=== PATIENT | female | born 1970 | race Caucasian/White ===

== ENCOUNTER 2019-04-15 06:19 | Day surgery (SDC) | payer BC ==
[2019-04-08 16:00] VITALS: BMI 41.1
[2019-04-15] MEDS ORDERED: MIDAZOLAM HCL 2 MG/2 ML SINGLE DOSE VIAL ONE ×2 (07:07→07:46)
[2019-04-15] MEDS ORDERED: DEXAMETHASONE SOD PHOSPHATE 4 MG/1 ML VIAL ONE (07:07)
[2019-04-15] MEDS ORDERED: PROPOFOL 20 ML ONE ×5 (07:07→08:53)
[2019-04-15] MEDS ORDERED: ROCURONIUM BROMIDE 50 MG/5 ML SYRINGE ONE (07:07)
[2019-04-15] MEDS ORDERED: fentaNYL CITRATE 250 MCG/5 ML VIAL ONE (07:07)
[2019-04-15] MEDS ORDERED: ONDANSETRON 4 MG/2 ML VIAL ONE (07:07)
[2019-04-15] MEDS ORDERED: SUCCINYLCHOLINE CHLORIDE 200 MG/10 ML SYRINGE ONE (07:07)
[2019-04-15] MEDS ORDERED: EPHEDRINE SULFATE/0.9% NACL/PF 50 MG/10 ML SYRINGE NR ONE (07:07)
[2019-04-15] MEDS ORDERED: BUPIVACAINE HCL 0.25% 125 MG/50 ML VIAL ONE (08:16)
[2019-04-15] MEDS ORDERED: GLYCOPYRROLATE 0.2 MG/1 ML VIAL ONE (08:31)
[2019-04-15] MEDS ORDERED: BUPIVACAINE HCL/PF 0.25% (2.5MG/ML) 10 ML VIAL IJ ONE ×2 (08:33)
[2019-04-15] MEDS ORDERED: ONDANSETRON 4 MG/2 ML VIAL IVPUSH PRN ×2 (09:31→09:40)
[2019-04-15] MEDS ORDERED: oxyCODONE HCL 5 MG TABLET PO PRN ×2 (09:31→09:40)
--- NOTE | 2019-04-15 09:38 | OP ---
Operative Note - Note: Operative Date: 04/15/19 Pre-Operative Diagnosis: Right abdominal pain. Malfunctioning subcutaneous gastric band port Operation: Removal plus replacement of malfunctioning gastric band port. Excision of fibrous capsule around subcutaneous port. Gastric Band adjustment Findings: Gastric band in sub-Q tissue with fibrous capsule encircling it. Fibrous capsule dissected away and port revealed Small hole noted in sub-Q port tubing and leakage noted Implants: Subcutaneous gastric band port Post-Operative Diagnosis: Same as Pre-op (Fibrous capsule around sub-Q port) Surgeon: Jacobo Landaverde Anesthesia: General Specimens Removed: Subcutaneous gastric band port Estimated Blood Loss (mls): 10 Operative Report Dictated: Yes
[2019-04-15] MEDS ORDERED: SODIUM CHLORIDE 1,000 ML IV SCH (09:45)
[2019-04-15] MEDS ORDERED: LACTATED RINGERS SOLUTION 1,000 ML IV SCH (09:45)
[2019-04-15] MEDS ORDERED: FAMOTIDINE 20 MG/50 ML IVPB 20 MG/50 ML MG IVPB ONE (09:58)
[2019-04-15] MEDS ORDERED: FAMOTIDINE 20 MG/50 ML IVPB 20 MG/50 ML MG IVPB SCH (10:00)
[2019-04-15] MEDS ORDERED: ENOXAPARIN NA (PORCINE) 40 MG/0.4 ML DISP.SYRIN SQ SCH (10:00)
[2019-04-15] MEDS ORDERED: FAMOTIDINE 20 MG PREMIXED IVPB IVPB ONE (10:00)
[2019-04-15 10:58] VITALS: TEMP 98.6
[2019-04-15] MEDS ORDERED: ENOXAPARIN NA (PORCINE) 40 MG/0.4 ML DISP.SYRIN SQ ONE (11:00)
[2019-04-15 12:11] VITALS: BP 116/66; PULSE 74
--- NOTE | 2019-04-15 14:49 | OP ---
DATE OF OPERATION: 04/15/2019 PREOPERATIVE DIAGNOSES: 1. Right abdominal pain. 2. Malfunctioning subcutaneous gastric band port. POSTOPERATIVE DIAGNOSES: 1. Right abdominal pain. 2. Malfunctioning subcutaneous gastric band port. 3. Fibrous capsule around subcutaneous abdominal port. PROCEDURES PERFORMED: 1. Removal plus replacement of malfunctioning subcutaneous gastric band port. 2. Excision of fibrous capsule around the port in the subcutaneous tissue. 3. Band adjustment. OPERATING SURGEON: Jacobo Landaverde MD ANESTHESIA: General. OPERATIVE PROCEDURE: The patient was brought into the operating room and placed on the OR table in the supine position. All precautions were taken initially, including padding for the back, and Venodyne boots were placed on both lower extremities. At that point, the abdomen was prepped and draped in the usual manner. Quarter-percent Marcaine was given into the right upper quadrant subcutaneous port site and then an incision was made with the scalpel on the medial portion of the previously made and well-healed trocar incision. This incision was carried down through the skin and subcutaneous tissue with the electrocautery. Dissection continued deeper into the subcutaneous fat as the appliance technician retracted the wound with the [facility] retractors. The port was located in the right upper quadrant on the right anterior rectus muscle. There was a fibrous capsule around it and this was dissected off with the electrocautery on the top of the port and then on the sides of the port and this continued until the entire port was free of the fibrous capsule in the subcutaneous tissue. The port was then grabbed with a towel clip and lifted up and the final dissection dissected the fibrous capsule off the port as the port entered the abdominal cavity. The port was now lifted up into the operative field including the tubing from within the abdomen. At this point, with a 22-gauge needle, 3 mL of saline was placed into the port which showed that in the tubing just distal to the port there was a hole and a significant amount of fluid leaked out. This was the definition of a malfunctioning subcutaneous port and needed to be replaced. At this point, about 6 cm from the port, the tubing was cut with the scissors and that port was then sent off the field as a specimen to Pathology. Before the new port was introduced, dissection continued more medially to get a good portion of either anterior right rectus fascia or linea alba in the midline. Once this was done and the fascia was exposed, 2-0 Prolene sutures were placed in three sides in order to anchor the port. The new port was now attached to the tubing and 4 mL of saline was placed into the port and 4 mL were withdrawn, showing that there was no leakage. This was the amount of band fill that was noted for initial band fill for this particular patient's gastric band. At this point, the new port was then tied down with the 2-0 Prolene sutures more medial than the previous one and it was secured to the right anterior rectus muscle fascia. Any minor bleeding was controlled with electrocautery and closure was now performed with 3-0 Vicryl in the subcutaneous tissue in an interrupted fashion, followed by 4-0 Biosyn in a subcuticular fashion. Dressings were applied. The patient awakened from anesthesia and transferred out of the operating room to the recovery room in stable condition. BLOOD LOSS: 10 mL Jan FERNÁNDEZ/[id number]
--- NOTE | 2019-04-21 12:51 | PATH ---
Surgical Pathology Report Patient Name: ZIA MITCHELL Med. Rec. #: [id number] /Age/Gender: 1970 (Age: 49) / F Account: [id number] Location: [facility] AMBULATORY Taken: 04/15/2019 Received: 04/15/2019 Reported: 04/21/2019 Physicians: Jacobo Landaverde M.D. Specimen(s) Received EXPLANTED GASTRIC BAND PORT Clinical History Malfunctioning subcutaneous gastric band port Final Diagnosis GASTRIC BAND PORT, REMOVAL: GASTRIC BAND PORT, DESCRIBED (GROSS EXAMINATION ONLY). Electronically Signed Nimo Lopes M.D. Gross Description Received fresh labeled "explanted gastric band port," is a 3 cm in diameter x 1.5 cm in depth white, circular device, consistent with a Port-A-Cath. The Port-A-Cath displays a 13 cm in length portion of tubing extending from one aspect. No soft tissue is present. No sections are submitted, gross only. 04/16/2019 saudi04/16/2019
== END 2019-04-15 11:50 | disposition home or self-care (01) ==
LOC: FASU 06:19
PROVIDERS: ATTEND Surgery
PROC: 0JWT0WZ Revision of Totally Implantable Vascular Access Device in Trunk Subcutaneous Tissue and Fascia, Open Approach (ICD-10-PCS; principal; 2019-04-15 08:00)
DX: K95.09 Other complications of gastric band procedure (principal); T85.518A Breakdown (mechanical) of other gastrointestinal prosthetic devices, implants and grafts, initial encounter; Y73.3 Surgical instruments, materials and gastroenterology and urology devices (including sutures) associated with adverse incidents; Y93.89 Activity, other specified; Y92.89 Other specified places as the place of occurrence of the external cause; K31.89 Other diseases of stomach and duodenum
CPT/HCPCS: 43888; S2083; 84703; 88300-TC; 94760